=== PATIENT | male | born 1985 | race Caucasian/White ===

== ENCOUNTER 2017-01-27 13:08 | Emergency (ER) | payer MEDICAID ==
[2017-01-27 17:17] VITALS: BP 120/73
== END 2017-01-27 17:17 | disposition home or self-care (01) ==
LOC: ED 13:08
PROC: 3E0233Z Introduction of Anti-inflammatory into Muscle, Percutaneous Approach (ICD-10-PCS; principal; 2017-01-27)
DX: T63.304A Toxic effect of unspecified spider venom, undetermined, initial encounter (principal); Y92.9 Unspecified place or not applicable
CPT/HCPCS: J2930; Q0163